=== PATIENT | female | born 1990 | race Two or more races ===

== ENCOUNTER 2021-03-31 08:22 | Outpatient (CLI) | payer OTHER | END 2021-03-31 10:04 | disposition home or self-care (01) | LOC: SONOGRAMA 08:22 | PROVIDERS: ATTEND Pathology Anatomic Pathology & Clinical Pathology | DX: R22.1 Localized swelling, mass and lump, neck (principal) ==

== ENCOUNTER 2022-12-01 10:46 | Outpatient (CLI) | payer OTHER ==
[2022-12-01] MEDS ORDERED: PROGESTERONE200 MG PO (17:58)
== END 2022-12-01 13:03 | disposition home or self-care (01) ==
LOC: PRENATAL 10:46 → EDBD 11:00 → PRENATAL 13:03
PROVIDERS: ATTEND Obstetrics & Gynecology Maternal & Fetal Medicine
DX: O35.9XX0 Maternal care for (suspected) fetal abnormality and damage, unspecified, not applicable or unspecified (principal); O35.3XX0 Maternal care for (suspected) damage to fetus from viral disease in mother, not applicable or unspecified; Z3A.25 25 weeks gestation of pregnancy

== ENCOUNTER 2022-12-29 10:19 | Outpatient (CLI) | payer OTHER ==
[~2022-12-29 10:19] MED LIST: PROGESTERONE200 MG PO
== END 2022-12-29 12:18 | disposition home or self-care (01) ==
LOC: PRENATAL 10:19
PROVIDERS: ATTEND Obstetrics & Gynecology Maternal & Fetal Medicine
DX: O26.849 Uterine size-date discrepancy, unspecified trimester (principal); O26.879 Cervical shortening, unspecified trimester; Z3A.29 29 weeks gestation of pregnancy

== ENCOUNTER 2023-02-05 08:48 | Outpatient (CLI) | payer OTHER | END 2023-02-05 09:44 | disposition home or self-care (01) | LOC: PRENATAL 08:48 | PROVIDERS: ATTEND Obstetrics & Gynecology Maternal & Fetal Medicine | DX: O26.849 Uterine size-date discrepancy, unspecified trimester (principal); O36.8199 Decreased fetal movements, unspecified trimester, other fetus; O28.3 Abnormal ultrasonic finding on antenatal screening of mother; Z3A.34 34 weeks gestation of pregnancy ==

== ENCOUNTER 2023-03-06 16:51 | Inpatient (IN) | payer OTHER ==
[~2023-03-06] VITALS: Ht 167.6 cm; Wt 79.4 kg
[2023-03-06] MEDS ORDERED: PRENATAL + DHA1 EAC1 PO (17:28)
== END 2023-03-08 12:26 | disposition home or self-care (01) | DRG 807 ==
LOC: OBS/DEL 16:51 → OB/GYN 19:58 → LDR 19:58 → OB/GYN 03-07 00:05
PROVIDERS: ADMIT Obstetrics & Gynecology; ATTEND Obstetrics & Gynecology
PROC: 10E0XZZ Delivery of Products of Conception, External Approach (ICD-10-PCS; principal; 2023-03-06)
PROC: 4A1HXCZ Monitoring of Products of Conception, Cardiac Rate, External Approach (ICD-10-PCS; 2023-03-06)
DX: O80 Encounter for full-term uncomplicated delivery (principal); Z37.0 Single live birth; Z3A.38 38 weeks gestation of pregnancy; Z20.822 Contact with and (suspected) exposure to COVID-19